=== PATIENT | male | born 1960 | race Caucasian/White ===

== ENCOUNTER → 2019-11-07 | Outpatient (CLI) | payer OTHER, BC ==
[~2019-11-07] MED LIST: ASA81BEC PO; BENADRYL ALLERG25 MG PO; BENICAR40 MG PO; CALCIUM ACETAT667 MG PO; DERMACINRX5000 UNIT PO; FERRIC SUBSULFATE PO; HYDRALAZINE HC100 MG PO; ISOSORBIDE DINI40 M1 PO; LIVALO2 MG PO; NORVASC 2.5 MG2.5 M1; PLAVIX 75 MG TA75 MG PO; TRAZODONE 150150 M1 PO
== END ==
LOC: SJCVCIMAG 12:22
PROVIDERS: ATTEND Internal Medicine Cardiovascular Disease
DX: R94.31 Abnormal electrocardiogram [ECG] [EKG] (principal); I44.7 Left bundle-branch block, unspecified; I08.8 Other rheumatic multiple valve diseases; I48.92 Unspecified atrial flutter; I13.11 Hypertensive heart and chronic kidney disease without heart failure, with stage 5 chronic kidney disease, or end stage renal disease; N18.6 End stage renal disease; I42.9 Cardiomyopathy, unspecified; I49.3 Ventricular premature depolarization; S81.801A Unspecified open wound, right lower leg, initial encounter; F17.200 Nicotine dependence, unspecified, uncomplicated; Z99.2 Dependence on renal dialysis; Z79.899 Other long term (current) drug therapy; Z86.79 Personal history of other diseases of the circulatory system; Z86.73 Personal history of transient ischemic attack (TIA), and cerebral infarction without residual deficits

== ENCOUNTER → 2019-11-08 | Outpatient (CLI) | payer OTHER, BC | LOC: SJCVCIMAG 08:24 | DX: I65.23 Occlusion and stenosis of bilateral carotid arteries (principal) ==

== ENCOUNTER → 2019-11-09 | Outpatient (CLI) | payer OTHER, BC ==
[2019-11-09 07:32] LABS: HEMOGLOBIN 11.1 gm/dL (14.0-18.0); MCH 33.4 pg (26.0-34.0); MCHC 32.7 g/dL (28.0-37.0); MCV 102.3 fL (80.0-100.0); RBC 3.32 mil/uL (4.50-6.00); RDW 17.1 % (10.5-14.5); WBC 6.9 thou/uL (4.0-11.0)
[2019-11-09 07:37] LABS: CALCIUM 8.9 mg/dL (8.5-10.1); POTASSIUM 4.5 mmol/L (3.5-5.1)
[2019-11-09 07:39] VITALS: BP 136/69
--- NOTE | 2019-11-09 08:17 | EKG ---
[facility] [place] [address] ELECTROCARDIOGRAM REPORT Name: MEGGAN PERSAUD Room #: [facility] M.R.#: [id number] Admission: 11/09/19 Attend Phys: Wojciech Mallory MD, Discharge: Date of : 58 Report #: [id number] THIS REPORT FOR: cc: Socrates Wong MD, Stephen L. MD Lundgren,Juan House MD [facility] ~ THIS REPORT FOR: //name// 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
--- NOTE | 2019-11-10 13:01 | CATHLAB ---
[facility] [place] [address] INVASIVE PROCEDURE REPORT Name: MEGGAN PERSAUD Room #: ISRAEL TASNEEM Schilling#: [id number] Admission: 11/09/19 Attend Phys: Wojciech Mallory MD, Discharge: Date of : 58 Report #: [id number] THIS REPORT FOR: cc: Socrates Wong MD, Stephen L. MD Mancuso, Gerald M. MD [facility] ~ APPROVED REPORT Study performed: 11/09/2019 09:55:15 Patient Details Patient Status: Out-Patient Room #: The patient is a 59 year-old male Event Personnel Wojciech Mallory Industrial Cafeteria Manager, Shikha Wang Partnoy, Nancy RTR, CASINO SHIFT MANAGER Monitor, Lobo Jackson RN, Tuan Billings RN e commerce director Performed Art Access - L femoral artery* Bigg Access - L femoral veinRight and Left Heart Cath w/or w/o Coronarie [id number] RLHC Hemostasis w/ Mynx Hemostasis with Manual pressure 48272 Initial Mod Sed Same Phys/QHP Gr5y 733895 81108 Mod Sed Same Phys/QHP Ea 309163 Indication Arrhythmia, Positive stress test Procedure Narrative A SHEATH BRITE-TIP 6F X 11CM ([id number]) sheath was inserted into the LFA. Coronary angiography was performed using coronary diagnostic catheters. The right coronary system was accessed and visualized with a JR4 catheter. The left coronary system was accessed and visualized with a JL6 catheter. The left ventricle was accessed and visualized with a pigtail catheter. Left ventricular/Aortic Valve gradient assessed via catheter pullback. Left ventriculogram was performed in 30 degree projection. Closure device was deployed with a 6 Fr MYNXGRIP 6/7F #[id number]. The patient tolerated the procedure well and there were no complications associated with the procedure. There was no hematoma. Intraoperative Conscious Sedation Sedation start time: 08:20 Case end Time: [facility] [place] [address] INVASIVE PROCEDURE REPORT Name: MEGGAN PERSAUD Room #: [id number] Admission: 11/09/19 Attend Phys: Wojciech Mallory, Discharge: Date of : 58 Report #: [id number] 11:20 Fentanyl 50 mcg Versed 2 mg Conscious sedation is a combined total for peripheral procedure and right and left heart cath. Fluoro time and dose are a combined total for peripheral procedure and right and left heart cath. Visipaque is a combined total for peripheral procedure and right and left heart cath. Omnipaque was used for the coronary injections. 110ml used. Fluoro Time: 19.31 minutes Dose: DAP 16929.20 cGycm2 1522 mGy Contrast Type and Amount: Visipaque 121 ml Hemodynamics The right atrial mean pressure is 20 mmHg. The right ventricular pressure is 42/16 mmHg. The pulmonary artery pressure is 61/23 mmHg with a mean of 32 mmHg. The mean pulmonary capillary wedge pressure is 23 mmHg. The aortic pressure is 158/66 mmHg with a mean of 96 mmHg. The left ventricular pressure is 151/18 mmHg with a mean of mmHg. The left ventricular end diastolic pressure is 29 mmHg. The cardiac output using thermo method is 5.70 L/min. The cardiac index using thermo method is 2.76 L/min/m2. PCI Technique Lesion Percutaneous coronary intervention was performed on the Distal anterior tibial. PCI Technique Lesion 2 Percutaneous Coronary Intervention was performed on the Mid posterior tibial. Conclusion 1. Normal left ventricular size and mild global hypokinesis EF 40-45% range #2 successful right heart catheterization see above hemodynamics. Cardiac output by thermodilution. #3 large dominant ectatic right coronary artery with mild calcification no significant occlusive disease PDA with a 50% ostial lesion. #4 left main short free of disease giving rise to LAD and circumflex #5 LAD moderately calcified with eccentric proximal lesions of 40% diffuse distal disease. #6 circumflex OM large but nondominant moderate distribution. [facility] [address] [place] [address] INVASIVE PROCEDURE REPORT Name: MEGGAN PERSAUD Room #: REG Tonie#: [id number] Admission: 11/09/19 Attend Phys: Wojciech Mallory, Discharge: Date of : 58 Report #: [id number] OM with a 40% eccentric proximal lesion the larger circumflex OM distally is widely patent Recommendations and plan continue aggressive risk factor modification. There is no indication for coronary intervention. Will follow moderate three-vessel disease as stated above. Mild to moderate hypokinesis possibly induced by atrial fibrillation will follow up with potential cardioversion. <ELECTRONICALLY SIGNED> By: Wojciech Mallory MD, [facility] 11/10/19 1259 1259 1259 Wojciech Mallory MD, FAC /INF
== END | disposition home or self-care (01) ==
LOC: CATH 06:36
PROVIDERS: Nuclear Medicine Nuclear Cardiology
DX: I49.9 Cardiac arrhythmia, unspecified (principal); R94.39 Abnormal result of other cardiovascular function study; I25.10 Atherosclerotic heart disease of native coronary artery without angina pectoris; I70.238 Atherosclerosis of native arteries of right leg with ulceration of other part of lower leg; L97.919 Non-pressure chronic ulcer of unspecified part of right lower leg with unspecified severity; I70.1 Atherosclerosis of renal artery; I12.9 Hypertensive chronic kidney disease with stage 1 through stage 4 chronic kidney disease, or unspecified chronic kidney disease; N18.9 Chronic kidney disease, unspecified; I11.0 Hypertensive heart disease with heart failure; I50.9 Heart failure, unspecified; E11.9 Type 2 diabetes mellitus without complications; I48.92 Unspecified atrial flutter; F17.210 Nicotine dependence, cigarettes, uncomplicated; Z98.890 Other specified postprocedural states; Z79.899 Other long term (current) drug therapy; Z79.01 Long term (current) use of anticoagulants; Z11.59 Encounter for screening for other viral diseases

== ENCOUNTER → 2019-12-05 | Outpatient (CLI) | payer OTHER, BC | LOC: SJCVC 12:59 | PROVIDERS: ATTEND Internal Medicine Cardiovascular Disease | DX: I25.10 Atherosclerotic heart disease of native coronary artery without angina pectoris (principal); I48.92 Unspecified atrial flutter; I10 Essential (primary) hypertension; I73.9 Peripheral vascular disease, unspecified; I65.23 Occlusion and stenosis of bilateral carotid arteries; E78.00 Pure hypercholesterolemia, unspecified; I42.9 Cardiomyopathy, unspecified; D68.59 Other primary thrombophilia; F17.200 Nicotine dependence, unspecified, uncomplicated; Z82.49 Family history of ischemic heart disease and other diseases of the circulatory system; Z79.899 Other long term (current) drug therapy ==

== ENCOUNTER → 2019-12-07 | Outpatient (CLI) | payer OTHER, BC | LOC: SJCVC 15:48 | PROVIDERS: ATTEND Internal Medicine Cardiovascular Disease | DX: R94.31 Abnormal electrocardiogram [ECG] [EKG] (principal); I45.2 Bifascicular block; I48.3 Typical atrial flutter; I25.10 Atherosclerotic heart disease of native coronary artery without angina pectoris; I12.9 Hypertensive chronic kidney disease with stage 1 through stage 4 chronic kidney disease, or unspecified chronic kidney disease; N18.6 End stage renal disease ==

== ENCOUNTER → 2020-01-08 | Outpatient (CLI) | payer OTHER, BC ==
[~2020-01-08] MED LIST changes: +ELIQUIS2.5 MG PO; +LISINOPRIL-HCT1 EAC1 PO; +METOPROLOL SUCC50 MG PO; +OLMESARTAN MEDO40 MG PO; +RENAL CAPS SOFTG1 MG PO; +ROSUVASTATIN CA20 MG PO
== END ==
LOC: LAB 14:12
PROVIDERS: ATTEND Internal Medicine Cardiovascular Disease
DX: Z01.812 Encounter for preprocedural laboratory examination (principal); Z11.59 Encounter for screening for other viral diseases

== ENCOUNTER → 2020-01-09 | Outpatient (CLI) | payer OTHER, BC ==
[~2020-01-09] VITALS: Ht 182.9 cm; Wt 87.1 kg
[2020-01-09 07:35] VITALS: BP 156/77
--- NOTE | 2020-01-09 08:44 | TEE ---
[facility] [place] [address] TRANSESOPHAGEAL ECHOCARDIOGRAM Name: MEGGAN PERSAUD Room #: REG TASNEEM Santoyo.#: [id number] Admission: 01/09/20 Attend Phys: Juan Becerra MD, Discharge: Date of : 58 Report #: [id number] THIS REPORT FOR: cc: Socrates Wong MD, Stephen L. MD Lundgren, Craig H. MD [facility] ~ APPROVED REPORT Study performed: 01/09/2020 07:49:35 EXAM: Comprehensive 2D, Doppler, and color-flow Echocardiogram Patient Location: Out-Patient Room #: 9 Status: routine BSA: 2.09 HR: 63 bpm BP: 156/77 mmHg Rhythm: Atrial Flutter Other Information Study Quality: Excellent Indications Atrial Flutter Echo Enhancing Agent Indication: Rule out Shunt Agent(s) / Amount(s) Used: Agitated Saline 7 cc Procedure After obtaining informed consent, patient underwent transesophageal echo in the [employer]. Type of Sedation : Conscious Sedation Sedation was achieved intravenously with: Versed (5 mg) Fentanyl (100 mcg) Transesophageal probe was inserted and advanced into esophagus without difficulty by Juan Becerra MD. Echo enhancement indication: R/O Septal defect. Echo enhancement agent administered: Agitated Saline The ELIE was performed without complications. Throughout the procedure, the blood pressure, pulse oximetry, cardiac rhythm, and rate were monitored. The patient tolerated the procedure without adverse effects. Recovery [facility] [email or web address] [place] [address] TRANSESOPHAGEAL ECHOCARDIOGRAM Name: MEGGAN PERSAUD Room #: REG CL [facility].#: [id number] Admission: 01/09/20 Attend Phys: Juan Becerra, Discharge: Date of : 58 Report #: [id number] from conscious sedation was uneventful and vital signs were stable. Left Ventricle The left ventricle is normal size. There is global hypokinesis of the left ventricle. There is normal left ventricular wall thickness. Left ventricular systolic function is moderately decreased. LVEF is 40%. Right Ventricle The right ventricle is normal size. The right ventricular systolic function is normal. Atria Left atrium is severely No thrombus is visualized in the left atrium or appendage.dilated. No shunting by contrast bubble injection Right atrium is severely dilated. Aortic Valve The aortic valve is trileaflet, mildly sclerotic. No aortic regurgitation is present. There is no aortic valvular stenosis. Mitral Valve Mild mitral annular calcification Mild mitral regurgitation. No evidence of mitral valve stenosis. Tricuspid Valve The tricuspid valve is normal in structure. Trace to mild tricuspid regurgitation. Pulmonic Valve The pulmonary valve is normal in structure. There is no pulmonic valvular regurgitation. Great Vessels Aortic root is borderline dilated (3.9 cm). IVC is normal in size and collapses >50% with inspiration. Pericardium There is no pericardial effusion. <Conclusion> Left ventricular systolic function is moderately decreased. LVEF is 40%. Both atria are severely [facility] [address] [place] [address] TRANSESOPHAGEAL ECHOCARDIOGRAM Name: MEGGAN PERSAUD Room #: REG CL [facility].#: [id number] Admission: 01/09/20 Attend Phys: Juan Becerra, Discharge: Date of : 58 Report #: [id number] No thrombus is visualized in the left atrium or appendage.dilated. No shunting by contrast bubble injection The aortic valve is trileaflet, mildly sclerotic. No aortic regurgitation or stenosis. Mild mitral annular calcification Mild mitral regurgitation. Aortic root is borderline dilated (3.9 cm). There is no pericardial effusion. <ELECTRONICALLY SIGNED> By: Juan Becerra MD, [facility] 01/09/2043 2 Juan Becerra MD, [facility] /INF
== END | disposition home or self-care (01) ==
LOC: CATH 06:37
PROVIDERS: ATTEND Internal Medicine
DX: I48.92 Unspecified atrial flutter (principal); I08.1 Rheumatic disorders of both mitral and tricuspid valves; I13.2 Hypertensive heart and chronic kidney disease with heart failure and with stage 5 chronic kidney disease, or end stage renal disease; E11.22 Type 2 diabetes mellitus with diabetic chronic kidney disease; N18.6 End stage renal disease; I50.9 Heart failure, unspecified; I25.10 Atherosclerotic heart disease of native coronary artery without angina pectoris; F17.210 Nicotine dependence, cigarettes, uncomplicated; I42.9 Cardiomyopathy, unspecified; Z98.890 Other specified postprocedural states; Z79.899 Other long term (current) drug therapy; Z79.01 Long term (current) use of anticoagulants

== ENCOUNTER 2020-01-11 06:32 | Observation (INO) | payer OTHER, BC ==
[~2020-01-11] VITALS: Ht 182.9 cm; Wt 87.1 kg
--- NOTE | ~2020-01-11 | HC ---
[facility] [place] [address] CONSULTATION Name: MEGGAN PERSAUD Room #: 201-P [facility]..#: [id number] Admission: 01/11/20 Attend Phys: Loc Quezada MD Discharge: Date of : 58 Report #: [id number] THIS REPORT FOR: cc: Socrates Wong MD,Socrates Jhaveri-Varun,Werner Dietz MD ~ CC: Loc Wong REASON FOR CONSULTATION: End-stage renal disease. REASON FOR PRESENTATION: Post-atrial flutter ablation. HISTORY OF PRESENT ILLNESS: This is a 59-year-old with end-stage renal disease due to hypertension. He is maintained on hemodialysis every Wednesday, Wednesday and Wednesday. He presented yesterday for an atrial flutter ablation procedure. He is known to have heart block and will be going through a pacemaker insertion today. He dialyzes with [facility]. I was asked to evaluate the patient regarding his dialysis need. He has no specific complaints related to his dialysis. He is utilizing his right-sided AV fistula for dialysis for the last 4 years. Known to have peripheral vascular disease and most recently had a cardiac catheterization along with peripheral vascular disease, angiogram. MEDICATIONS: 1. Crestor. 2. Amlodipine. 3. Olmesartan. ALLERGIES: SHELLFISH. FAMILY HISTORY: Hypertension. PAST MEDICAL AND SURGICAL HISTORY: 1. End-stage renal disease. 2. Atrial flutter. 3. Cardiomyopathy. 4. Right-sided AV fistula. REVIEW OF SYSTEMS: GENERAL: No fever or chills. CARDIOVASCULAR: No chest pain or palpitation. PULMONARY: No cough or hemoptysis. GASTROINTESTINAL: No nausea or vomiting. GENITOURINARY: No frequency, no urgency. MUSCULOSKELETAL: No morning stiffness, no back pain. SKIN: No rash or ulcerations. [facility] [address] [place] [address] CONSULTATION Name: MEGGAN PERSAUD Room #: 201-P [facility].#: [id number] Admission: 01/11/20 Attend Phys: Loc Quezada MD Discharge: Date of : 58 Report #: [id number] PHYSICAL EXAMINATION: VITAL SIGNS: Temperature 36.7, pulse rate is 60, blood pressure is 170/90. Pulse ox is 94. HEAD AND NECK: No jugular venous distention, no bruit, no thyromegaly. CHEST: Clear to auscultation bilaterally. CARDIOVASCULAR: Regular with no rub detected. ABDOMEN: Soft, nontender. EXTREMITIES: Lower extremities, no edema. Upper extremities, right-sided AV fistula. LABORATORY VALUES: White blood cell count is 7.7, hemoglobin is 10.6, platelet is 105. Chemistry from today revealed a sodium of 140, potassium 4.3, BUN of 72, creatinine of 7.6. ASSESSMENT AND PLAN: 1. End-stage renal disease. 2. Status post atrial flutter ablation procedure. 3. Heart block, going for a pacemaker insertion today. 4. Arrangements were made for the patient to have dialysis today. 5. Cardiology is following him regarding his ongoing rhythm issues. 6. Resume his blood pressure medications. 7. We will continue to follow during his hospital stay. By: 0737 0806 Werner Green MD /nt
[~2020-01-11 06:32] MED LIST changes: -ELIQUIS2.5 MG PO; -LISINOPRIL-HCT1 EAC1 PO; -METOPROLOL SUCC50 MG PO; -OLMESARTAN MEDO40 MG PO; -RENAL CAPS SOFTG1 MG PO; -ROSUVASTATIN CA20 MG PO
[2020-01-11 07:26] VITALS: BP 154/77
[2020-01-11 07:44] LABS: BASOPHILS 0.3 % (0.0-2.0); EOSINOPHILS 1.9 % (0.0-3.0); HEMATOCRIT 32.8 % (42.0-52.0); HEMOGLOBIN 10.8 gm/dL (14.0-18.0); LYMPHOCYTES 19.7 % (24.0-44.0); MCH 34.7 pg (26.0-34.0); MCHC 32.8 g/dL (28.0-37.0); MCV 105.8 fL (80.0-100.0); MONOCYTES 10.4 % (1.0-8.0); PLATELET COUNT 121 thou/uL (150-400); POLYS 67.7 % (36.0-66.0); RDW 17.7 % (10.5-14.5)
[2020-01-11 07:54] LABS: CALCIUM 8.5 mg/dL (8.5-10.1); CREATININE 6.5 mg/dL (0.7-1.3); POTASSIUM 3.7 mmol/L (3.5-5.1)
[2020-01-11] MEDS ORDERED: ROSUVASTATIN CA20 MG PO (07:54)
[2020-01-11] MEDS ORDERED: OLMESARTAN MEDO40 MG PO (07:54)
[2020-01-11] MEDS ORDERED: RENAL CAPS SOFTG1 MG PO (07:55)
[2020-01-11] MEDS ORDERED: LISINOPRIL-HCT1 EAC1 PO (07:56)
[2020-01-11 07:59] LABS: ALBUMIN 3.2 g/dL (3.4-5.0); TOTAL BILIRUBIN 0.8 mg/dL (0.2-1.0); TOTAL PROTEIN 7.5 g/dL (6.4-8.2)
[2020-01-11 08:04] LABS: APTT 26.8 Seconds (24.5-32.8); INR 1.1; PROTIME 11.7 Seconds (9.3-11.4)
--- NOTE | 2020-01-11 14:33 | NUR ---
PT ARRIVED TO UNIT AT APPROX 1220 BY PACU STAFF. S/O WITH HERE. PT ALERT AND ORIENTED. SEEMS FRUSTRATED, FLAT. STATES UPSET ABOUT NEEDING PACEMAKER TOMORROW. DR HIGGINBOTHAM IN ROOM TALKING WITH PT REGARDING PROCEDURE TOMORROW. PT STATES ANXIOUS, WANTING SOMETHING FOR ANXIETY. L AND R GROIN SITE DRSVASU CDI, NO HEMATOMA. POST EP LAB VS INITIATED. VSS. ADMISSION COMPLETE. S/O TOOK PT MEDS HOME. TELE STRIP PRINTED AND DOCUMENTED. EDUCATED PT ON IMPORTANCE OF BEDREST, COMMUNICATES UNDERSTANDING. O2 SATS WNL ON 3L O2. DENIES NEEDS AT THIS TIME. WILL CONT TO MONITOR.
[2020-01-11 16:00] VITALS: BP 153/82
--- NOTE | 2020-01-11 18:43 | NUR ---
PT CONTINUES TO BE ALERT AND ORIENTED. VSS. DENIES PAIN. O2 SATS WNL ON 2L. TITRATED DOWN FROM 3. PT UP AD MARTIN TOLERATING WELL. GROIN SITES REMAIN CDI. NO HEMATOMA. PT TO HAVE DIALYSIS TOMORROW. PT LEFT HOME TRAZADONE PILLS. INFORMED PT THAT IS NOT ALLOWED-MEDS TAKEN TO PHARMACY, INSTRUCTED PT TO SHOWCASE MAKER BEFORE DC. DENYING CONCERNS. WILL CONT TO MONITOR. WILL PASS ON REPORT TO JENNIFER WEST.
[2020-01-11 20:05] VITALS: BP 146/61
[2020-01-12] VITALS (7 sets, daily range): BP systolic 148–173; BP diastolic 76–118
--- NOTE | 2020-01-12 03:24 | NUR ---
PT IS ALERT AND ORIENTED X4. LUNGS ARE CLEAR ON 3 LITERS NASAL CANULA. COMPLETE HEART BLOCK SHOULD GO FOR A PACEMAKER PLACEMENT TODAY. DENIES PAIN IS ANXIOUS WITH ASSESSMENT. MEDS GIVEN TO LESSEN ANXIETY. ESRD OLIGURIA. RIGHT ARM FISTUAL BRUIT AND THRILL PRSENT. PLAN IS TO GET DIALYSIS IN AM. WILL CONTINUE TO ASSESS AND MONITOR PER NURSING.
[2020-01-12 05:39] LABS: EOSINOPHILS 1.7 % (0.0-3.0); HEMATOCRIT 32.7 % (42.0-52.0); HEMOGLOBIN 10.6 gm/dL (14.0-18.0); LYMPHOCYTES 23.9 % (24.0-44.0); MCH 34.4 pg (26.0-34.0); MCHC 32.4 g/dL (28.0-37.0); MCV 106.1 fL (80.0-100.0); MONOCYTES 8.8 % (1.0-8.0); PLATELET COUNT 105 thou/uL (150-400); POLYS 64.6 % (36.0-66.0); RBC 3.08 mil/uL (4.50-6.00); RDW 18.2 % (10.5-14.5); WBC 7.7 thou/uL (4.0-11.0)
[2020-01-12 05:48] LABS: CALCIUM 7.9 mg/dL (8.5-10.1); POTASSIUM 4.3 mmol/L (3.5-5.1)
[2020-01-12 06:22] LABS: CREATININE 7.6 mg/dL (0.7-1.3)
[2020-01-12] MEDS ORDERED: METOPROLOL SUCC50 MG PO (16:21)
--- NOTE | 2020-01-12 18:16 | NUR ---
ASSUMED CARE AT SHIFT CHANGE. PT ALERT 4, FROM HOME. DIALYSIS THIS MORNING WITH 3L TAKEN OFF. PACEMAKER PLACED THIS AFTERNOON. POST CARDIAC PROCEDURE VITALS IN PLACE. HOB ELEVATED PER ORDERS. LEFT IMMOPBILIZER IN PLACE. TREATED ELEVATED BP WITH SCHEDULED MEDS. DIET RESUMED. BEDREST TONIGHT. CONTINUE TO MONITOR. CALL LIGHT AND PERSONAL ITEMS IN REACH.
[2020-01-13] VITALS: BP 172/106
[2020-01-13 04:00] VITALS: BP 169/84
[2020-01-13 04:28] VITALS: BP 169/84
--- NOTE | 2020-01-13 04:48 | NUR ---
ASSUMED PT CARE AT AROUND 1930, PT IS AWAKE, ALERT AND ORIENTEDX4, MAKES NEEDS KNOWN, ASSESSMENTS CHARTED, BP ELEVATED, DR NOTIFIED ORDERS RECEIVED AND ADMINISTERED PER AUG, VPACED ON THE MONITOR, PACEMAKER INCISION SITE TO THE LEFT IS CDI, RESTING IN BED, NO DISTRESS NOTED AT THIS TIME
[2020-01-13] MEDS ORDERED: ELIQUIS2.5 MG PO (07:56)
[2020-01-13 08:00] VITALS: BP 151/91
--- NOTE | 2020-01-13 11:30 | NUR ---
ASSUMED CARE AT CHANGE OF SHIFT. ALERT X4, DENIES CHEST PAIN, DENIES SOB, PACEMAKER SITE INTACT, INTEROGATION COMPLETED. CHEST XRAY COMPLETED. CARDIOLOGY ROUNDED AND EDUCATED PT ON POST PROCEDURE EDUCATION. REVIEWED DC PAPERS, REMOVE IV, AND TELE, EDUCATED TO FOLLOW UP WITH CARDIOLOGY. DC HOME WIHT SELF CARE.
[2020-01-13 11:38] VITALS: BP 151/91
== END 2020-01-13 12:55 | disposition home or self-care (01) ==
LOC: CATH 06:32 → 2N 12:24 → CATH 13:41 → EDSTATUS 15:00 → CATH 15:00 → 2N 01-13 12:55
PROVIDERS: ADMIT Internal Medicine Cardiovascular Disease; ATTEND Internal Medicine Cardiovascular Disease
DX: I44.2 Atrioventricular block, complete (principal); I48.3 Typical atrial flutter; I49.3 Ventricular premature depolarization; I42.8 Other cardiomyopathies; I25.10 Atherosclerotic heart disease of native coronary artery without angina pectoris; E78.5 Hyperlipidemia, unspecified; I12.0 Hypertensive chronic kidney disease with stage 5 chronic kidney disease or end stage renal disease; N18.6 End stage renal disease; E11.22 Type 2 diabetes mellitus with diabetic chronic kidney disease; F17.200 Nicotine dependence, unspecified, uncomplicated; Z86.73 Personal history of transient ischemic attack (TIA), and cerebral infarction without residual deficits; Z79.01 Long term (current) use of anticoagulants; Z99.2 Dependence on renal dialysis
CPT/HCPCS: 32100; 62110; 62900; 70005

== ENCOUNTER → 2020-01-18 | Outpatient (CLI) | payer OTHER, BC ==
[~2020-01-18] MED LIST changes: +ELIQUIS2.5 MG PO; +LISINOPRIL-HCT1 EAC1 PO; +METOPROLOL SUCC50 MG PO; +OLMESARTAN MEDO40 MG PO; +RENAL CAPS SOFTG1 MG PO; +ROSUVASTATIN CA20 MG PO
== END ==
LOC: SJCVC 15:19
PROVIDERS: ATTEND Internal Medicine Cardiovascular Disease
DX: Z45.018 Encounter for adjustment and management of other part of cardiac pacemaker (principal); I48.3 Typical atrial flutter; I42.8 Other cardiomyopathies; I44.2 Atrioventricular block, complete; F17.200 Nicotine dependence, unspecified, uncomplicated; Z79.899 Other long term (current) drug therapy

== ENCOUNTER → 2020-02-13 | Outpatient (CLI) | payer OTHER, BC | LOC: SJCVCIMAG 08:16 | PROVIDERS: ATTEND Nuclear Medicine Nuclear Cardiology | DX: I73.9 Peripheral vascular disease, unspecified (principal); I48.92 Unspecified atrial flutter; I25.10 Atherosclerotic heart disease of native coronary artery without angina pectoris; I12.0 Hypertensive chronic kidney disease with stage 5 chronic kidney disease or end stage renal disease; N18.6 End stage renal disease; E78.00 Pure hypercholesterolemia, unspecified; F17.200 Nicotine dependence, unspecified, uncomplicated; Z99.2 Dependence on renal dialysis; Z82.49 Family history of ischemic heart disease and other diseases of the circulatory system ==

== ENCOUNTER → 2020-04-11 | Outpatient (CLI) | payer OTHER, BC | LOC: SJCVC 13:07 | PROVIDERS: ATTEND Internal Medicine Cardiovascular Disease | DX: Z45.018 Encounter for adjustment and management of other part of cardiac pacemaker (principal); R94.31 Abnormal electrocardiogram [ECG] [EKG]; I45.10 Unspecified right bundle-branch block; I42.8 Other cardiomyopathies; I48.3 Typical atrial flutter; I44.2 Atrioventricular block, complete; I48.92 Unspecified atrial flutter; F17.200 Nicotine dependence, unspecified, uncomplicated; Z79.899 Other long term (current) drug therapy ==

== ENCOUNTER → 2020-07-09 | Outpatient (CLI) | payer OTHER, BC | LOC: SJCVC 15:58 | PROVIDERS: ATTEND Internal Medicine Cardiovascular Disease | DX: I45.4 Nonspecific intraventricular block (principal); R94.31 Abnormal electrocardiogram [ECG] [EKG]; I42.8 Other cardiomyopathies; I48.3 Typical atrial flutter; I49.3 Ventricular premature depolarization; I13.11 Hypertensive heart and chronic kidney disease without heart failure, with stage 5 chronic kidney disease, or end stage renal disease; E11.22 Type 2 diabetes mellitus with diabetic chronic kidney disease; N18.6 End stage renal disease; F17.200 Nicotine dependence, unspecified, uncomplicated; Z86.73 Personal history of transient ischemic attack (TIA), and cerebral infarction without residual deficits; Z79.899 Other long term (current) drug therapy; Z95.0 Presence of cardiac pacemaker ==

== ENCOUNTER 2020-12-26 19:36 | Inpatient (IN) | payer OTHER, BC ==
[~2020-12-26] VITALS: Ht 180.3 cm; Wt 91.6 kg
--- NOTE | ~2020-12-26 | P ---
[facility] [place] [address] PROCEDURE REPORT Name: MEGGAN PERSAUD Room #: 457-P ADM IN M.R.#: [id number] Admission: 12/26/20 Attend Phys: Koko Santana MD Discharge: Date of : 58 Report #: [id number] THIS REPORT FOR: cc: Beltran Knight,Edgar Toney MD ~ cc: Koko Santana MD, Wilfrido Hoffman MD, Werner Green MD, ____ DATE OF SERVICE: 12/28/2020 PROCEDURE PERFORMED: Upper endoscopy. HISTORY OF PRESENT ILLNESS: The patient is a 60-year-old male who was admitted through the Emergency Room yesterday with anemia. He is on hemodialysis for renal failure, he was noted to have a hemoglobin of 5.4, escorted to the Emergency Room. Admit hemoglobin was 6.0. He received 2 units of packed cells, hemoglobin went up to 6.8. He underwent another unit of packed cells for a total of 3, hemoglobin at this time is 7.9. He apparently report some black stools recently. The patient is on Epogen. He has had a bone marrow biopsy done in the past. He has a history of AFib. He is on Eliquis. The patient was started on Auryxia, apparently when black stool started; they decreased the dose recently. His last colonoscopy was approximately 6 years ago. No previous history of upper endoscopy. Stools were Hemoccult positive here. DESCRIPTION OF PROCEDURE: The risks and benefits of the procedure were explained to the patient, those risks including but not limited to bleeding, perforation and the risk of sedation. He understood these risks and gave informed consent. Sedation was given using propofol per anesthesia. Next, using a standard Olympus upper endoscope, the scope was placed in the patient's mouth and advanced under direct vision through the esophagus, stomach and into the second portion of the duodenum. The larynx was normal in appearance. The upper and mid esophagus was normal. A possible short segment of Lilly's was noted. I did not proceed with biopsies as the patient was recently on Eliquis. No evidence of esophagitis. Overall, the gastric mucosa was normal. In the fundus and body, there was a mild gastritis with small erosions noted in the gastric antrum. No evidence of bleeding. Again, no biopsies today due to recent Eliquis. The pylorus was normal and patent. The duodenal bulb, first and second portion showed melanosis type changes, but otherwise normal. There was no evidence of blood throughout the exam today. The scope was then withdrawn and the procedure terminated. The patient tolerated the procedure well. IMPRESSION: 1. 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 2. Gastritis with small erosions. No evidence of bleeding. 3. Melanosis changes of the duodenum. [address] [address] PROCEDURE REPORT Name: MEGGAN PERSAUD Room #: 457-P [facility] IN M.R.#: [id number] Admission: 12/26/20 Attend Phys: Koko Santana MD Discharge: Date of : 58 Report #: [id number] 4. Otherwise, normal upper endoscopy. Again, no evidence of bleeding or stigmata of recent bleeding on upper endoscopy today. RECOMMENDATIONS: 1. Continue PPI therapy. 2. Continue to monitor hemoglobin closely. 3. We will discuss proceeding with colonoscopy possibly tomorrow with the patient. Thank you for allowing me to participate in his care. By: 1030 2049 Edgar Carter MD /nt
--- NOTE | ~2020-12-26 | P ---
[facility] [place] [address] PROCEDURE REPORT Name: MEGGAN PERSAUD Room #: 457-P [facility] IN M.R.#: [id number] Admission: 12/26/20 Attend Phys: Koko Santana MD Discharge: 12/29/20 Date of : 58 Report #: [id number] THIS REPORT FOR: cc: Beltran Knight,Edgar Toney MD ~ cc: Koko Santana MD, Beltran Knight, DATE OF SERVICE: 12/29/2020 PROCEDURE PERFORMED: Colonoscopy with polypectomies and tattoo. HISTORY OF PRESENT ILLNESS: The patient is a 60-year-old male with a history of end-stage renal disease, on hemodialysis. He has a history of chronic anemia. On dialysis, he was noted to have a hemoglobin of 5.4. He went to the emergency room and was admitted. Hemoglobin here was 6.0. He had a total of 3 units transfused. His hemoglobin at this time is 7.5, it was 7.9 yesterday. He also has a Hemoccult positive stool. He was complaining of some dark stools recently. Therefore, an upper endoscopy was performed by myself yesterday. This showed a possible short segment of Lilly's, mild gastritis with small erosions, but no evidence of bleeding throughout the exam. The patient had recently been on Eliquis and biopsies were not obtained. He has now been off Eliquis for two days. Plan is for colonoscopy today. He is unsure when his last colonoscopy was performed. No family history of colon cancer. DESCRIPTION OF PROCEDURE: The risks and benefits of the procedure were explained to the patient, those risks including but not limited to bleeding, perforation and the risk of sedation. He understood these risks and gave informed consent. Sedation was given using propofol per anesthesia. Next, a digital rectal exam was initially performed, which was normal. Next, using a standard Olympus colonoscope, the scope was placed in the patient's anus and advanced under direct vision to the cecum. The overall prep was good. In the cecum, there was a small area of just a few centimeters, it appears to be a mild colitis. Biopsies were obtained, otherwise, normal. The ileocecal valve was normal. In the proximal ascending colon, there was colitis with small ulcerations. Several biopsies were obtained to rule out the possibility of a recent ischemic colitis. There was no active bleeding. Also, in the ascending colon were 2 polyps, 4-6 mm in size, both removed by snare cautery. In the transverse colon, there was a total of 6 polyps noted. The smaller ones ranged from 5 mm to 1 cm. However, there was one large one that was approximately 2.5 cm in size. This was located at 60 cm. This was removed. All the polyps were removed by snare cautery. The largest was removed in a piecemeal fashion. Once that was removed, I tattooed the edges of the polypectomy site. There was no bleeding after polypectomies. The descending colon was normal. Multiple diverticula were noted in the sigmoid colon. No evidence of inflammation or recent bleeding. The rectal mucosa was normal. On retroflexion, [facility] [address] [address] PROCEDURE REPORT Name: MEGGAN PERSAUD Room #: 457-P DIS IN M.R.#: [id number] Admission: 12/26/20 Attend Phys: Koko Santana MD Discharge: 12/29/20 Date of : 58 Report #: [id number] nonbleeding internal hemorrhoids also noted. The scope was then withdrawn and the procedure terminated. The patient tolerated the procedure well. IMPRESSION: 1. Colitis in the ascending colon and a small area in the cecum. Suspect this may be secondary to recent ischemic colitis. No evidence of bleeding at this time. Biopsies were obtained. 2. Multiple polyps as described above including a large polyp at 60 cm as described above, all were removed today. 3. Sigmoid diverticulosis. No evidence of bleeding or recent bleeding. 4. Small nonbleeding internal hemorrhoids. RECOMMENDATIONS: 1. Await biopsy results. 2. We will repeat colonoscopy in one year if polyps show no evidence of dysplasia. 3. Would recommend holding his Eliquis for the next 10 days due to multiple polyps being removed today. Thank you for allowing me to participate in his care. By: 0853 [id number] Edgar Carter MD /nt
[2020-12-26 19:36] VITALS: BP 147/83
[2020-12-26 21:17] LABS: BASOPHILS 1.3 % (0.0-2.0); LYMPHOCYTES 9.7 % (24.0-44.0); MCH 32.7 pg (26.0-34.0); MCHC 30.8 g/dL (28.0-37.0); MCV 106.1 fL (80.0-100.0); MONOCYTES 11.7 % (1.0-8.0); PLATELET COUNT 179 thou/uL (150-400); POLYS 75.3 % (36.0-66.0); RBC 1.84 mil/uL (4.50-6.00); RDW 21.2 % (10.5-14.5); WBC 6.6 thou/uL (4.0-11.0)
[2020-12-26 21:21] LABS: HEMATOCRIT 19.5 % (42.0-52.0)
[2020-12-26 21:31] LABS: ANION GAP 10 mmol/L (7-16); BUN 60 mg/dL (7-18); CALCIUM 8.4 mg/dL (8.5-10.1); CHLORIDE 101 mmol/L (98-107); CO2 31 mmol/L (21-32); CREATININE 5.8 mg/dL (0.7-1.3); GLUCOSE 109 mg/dL (74-106); POTASSIUM 3.3 mmol/L (3.5-5.1); SODIUM 142 mmol/L (136-145)
[2020-12-26 21:36] LABS: ALBUMIN 2.9 g/dL (3.4-5.0); SGOT 21 U/L (15-37); SGPT 16 U/L (30-65); TOTAL BILIRUBIN 0.6 mg/dL (0.2-1.0); TOTAL PROTEIN 7.5 g/dL (6.4-8.2); TROPONIN-I <0.06 ng/mL (<0.06)
[2020-12-26 22:01] VITALS: BP 153/76
[2020-12-26 22:09] VITALS: BP 145/86
[2020-12-26] MEDS ORDERED: AMIODARONE HCL400 MG PO (22:29)
[2020-12-27] VITALS (7 sets, daily range): BP systolic 132–148; BP diastolic 72–89
--- NOTE | 2020-12-27 05:02 | NUR ---
ASSESSMENT: PT ARRIVED TO ROOM 457 FROM ED. PT IS ALERT AND ORIENT TIMES FOUR. VSS, AFEBRILE. SR PER MONITOR. PT RECEIVED 2 UNITS OF PRBC, TOLERATED WELL. DENIES CONTINUOUS PAIN, DOES HAVE HX OF BACK PAIN. PT IS ANURIC AND NO BM THIS SHIFT. PT'S HOME MEDS WERE GIVEN TO PHARMACY IN A SECURITY BAG. PT EDUCATED ABOUT USING CALL BUTTON, BED ALARMS, AND TRANSFUSION REACTIONS. SLOW PROGRESS TOWARDS DC GOALS, WILL CONTINUE TO MONITOR.
[2020-12-27 10:00] LABS: HEMATOCRIT 20.8 % (42.0-52.0); HEMOGLOBIN 6.8 gm/dL (14.0-18.0)
[2020-12-27 10:20] LABS: % SATURATION 65 % (20-39); IRON 170 ug/dL (65-175); TIBC 261 ug/dL (250-450)
[2020-12-27 16:53] LABS: HEMATOCRIT 23.7 % (42.0-52.0); HEMOGLOBIN 7.6 gm/dL (14.0-18.0)
--- NOTE | 2020-12-27 17:22 | 2DMMODE ---
[facility] [place] [address] 2 D/M-MODE ECHOCARDIOGRAM Name: MEGGAN PERSAUD Room #: 457-P ADM IN M.R.#: [id number] Admission: 12/26/20 Attend Phys: Koko Santana MD Discharge: Date of : 58 Report #: [id number] THIS REPORT FOR: cc: Beltran Knight,Juan Avila MD [facility] ~ APPROVED REPORT Study performed: 12/27/2020 14:22:37 EXAM: Comprehensive 2D, Doppler, and color-flow Echocardiogram Patient Location: Bedside Room #: [facility] Status: routine BSA: 2.10 HR: 71 bpm BP: 145/86 mmHg Rhythm: Pacemaker Other Information Study Quality: Good Indications Congestive Heart Failure Pacemaker Cardiomyopathy Hypertension/HDD 2D Dimensions RVDd: 50.46 mm IVSd: 16.71 (7-11mm) LVOT Diam: 25.98 (18-24mm) LVDd: 51.56 mm PWd: 16.58 (7-11mm) Ascending Ao: 35.89 (22-36mm) LVDs: 36.75 (25-40mm) Left Atrium: 48.87 (27-40mm) Aortic Root: 38.65 mm IVC: 29.00 mm Volumes Left Atrial Volume (Systole) Single Plane 4CH: 127.46 mL Single Plane 2CH: 131.14 mL LA ESV Index: 66.00 mL/m2 Aortic Valve [facility] [address] [place] [address] 2 D/M-MODE ECHOCARDIOGRAM Name: REBECCAEmmieMEGGAN SHELDON Room #: 457-P ADM IN M.R.#: [id number] Admission: 12/26/20 Attend Phys: Koko Santana, Discharge: Date of : 58 Report #: [id number] AoV Peak Goldy.: 2.14 m/s AO Peak Gr.: 18.28 mmHg LVOT Max P.67 mmHg LVOT Max V: 1.08 m/s MORENA Vmax: 2.68 cm2 Mitral Valve E/A Ratio: 2.5 MV Decel. Time: 236.96 ms MV E Max Goldy.: 1.53 m/s MV A Goldy.: 0.62 m/s MV PHT: 68.72 ms IVRT: 96.89 ms Pulmonary Valve PV Peak Goldy.: 1.09 m/s PV Peak Gr.: 4.77 mmHg Pulmonary Vein P Vein S: 0.42 m/s P Vein A: 0.16 m/s P Vein D: 0.77 m/s P Vein A Dur.: 78.4 msec P Vein S/D Ratio: 0.55 Tricuspid Valve TR Peak Goldy.: 3.03 m/s TR Peak Gr.: 36.77 mmHg PA Pressure: 47.00 mmHg Left Ventricle The left ventricle is normal size. There is global hypokinesis of the left ventricle. Moderate concentric left ventricular hypertrophy. Left ventricular systolic function is moderately decreased. LVEF is 40-45%. Severe diastolic dysfunction Right Ventricle Right ventricle is dilated. The right ventricular systolic function is normal. Pacemaker lead is present in the right ventricle. Atria Left atrium is dilated. Right atrium is dilated. Pacemaker lead is present in the right atrium. Aortic Valve Aortic valve is mildly calcified No aortic regurgitation is present. There is no aortic valvular stenosis. Mitral Valve Moderate mitral annular calcification Mild-moderate mitral [facility] [place] [address] 2 D/M-MODE ECHOCARDIOGRAM Name: MEGGAN PERSAUD Room #: 457-P [facility] IN .R.#: [id number] Admission: 12/26/20 Attend Phys: Koko Santana, Discharge: Date of : 58 Report #: [id number] regurgitation. No evidence of mitral valve stenosis. Tricuspid Valve The tricuspid valve is normal in structure. There is mild tricuspid regurgitation. Estimated 45 mmHg. There is moderate pulmonary hypertension. Pulmonic Valve The pulmonary valve is normal in structure. There is no pulmonic valvular regurgitation. Great Vessels The aortic root is normal in size. IVC is dilated and collapses <50% with inspiration. Pericardium There is no pericardial effusion. <Conclusion> Left ventricular systolic function is moderately decreased. There is global hypokinesis of the left ventricle. LVEF is 40-45%. Severe diastolic dysfunction Both atria are dilated. Pacemaker lead is present in the right atrium. Aortic valve is mildly calcified. No aortic regurgitation or stenosis Moderate mitral annular calcification. Mild-moderate mitral regurgitation. There is mild tricuspid regurgitation. Estimated pulmonary artery pressure of 45 mmHg. There is no pericardial effusion. <ELECTRONICALLY SIGNED> By: Juan Becerra MD, FACC 12/27/201720 20 20 Juan Becerra MD, FACC /INF
--- NOTE | 2020-12-27 19:58 | NUR ---
ASSUMED PT CARE THIS AM. PT IS ALERT & ORIENTED X4. PT HAS IV SITE ON L 20 GAUGE AND R AV FISTULA. PT IS ON TELE WITH AV PACED NOTED. CHANGED DIET FOR DINNER PER PT REQUEST AND DR GABY. ENDORSE NIGHT NURSE TO CHANGE DIET TO NPO AFTER MIDNIGHT. PT DID DIALYSIS TODAY. PT IS ON ROOM AIR. PT HGB WAS 6.8 THIS AM AFTER RECEIVING 2 UNITS OF BLOOD FROM NIGHT NURSE AND INFORMED DRBozena GIVEN 1 UNIT OF BLOOD AND HGB IS NOW ELEVATED AND INFORMED SENT OCCULT BLOOD TO THE LAB TODAY. PT IS ACCUCHECK ACHS. PT ON THE BED, BED ON THE LOWEST POSITION, SIDE RAILS UP, CALL LIGHT WITHIN REACH. WILL CONTINUE TO MONITOR PT. FOLLOW POC.
[2020-12-28 02:07] LABS: HEP B SURFACE Ab(ANTI-HBS Non Reactive (()); HEPATITIS B SURFACE AG Negative (Negative)
--- NOTE | 2020-12-28 06:03 | NUR ---
Pt. rested quietly during the night when checked on during frequent rounds. He offers no c/o pain. Pt. verbalizes that he feels a little more stronger after all that blood that went through him.
[2020-12-28 07:28] VITALS: BP 141/82
[2020-12-28 10:20] LABS: HEMATOCRIT 25.7 % (42.0-52.0); HEMOGLOBIN 7.9 gm/dL (14.0-18.0); MCH 31.8 pg (26.0-34.0); MCHC 30.6 g/dL (28.0-37.0); MCV 103.9 fL (80.0-100.0); RBC 2.47 mil/uL (4.50-6.00); WBC 6.4 thou/uL (4.0-11.0)
[2020-12-28 10:27] LABS: CALCIUM 8.5 mg/dL (8.5-10.1); CREATININE 5.4 mg/dL (0.7-1.3); POTASSIUM 3.8 mmol/L (3.5-5.1)
--- NOTE | 2020-12-28 11:36 | NUR ---
ASSUMED PT CARE THIS AM. PT A&OX4, ABLE TO MAKE NEEDS KNOWN. IV REMAINS PATENT, SALINE LOCKED. PATIENT HAS BEEN NPO FOR EGD THIS DAY. PATIENT REPORTING NO PAIN, NUMBNESS, OF TINGLING. BLOOD SUGAR BEING MONITORED. PATIENT REMAINS ON ROOM AIR. CALL LIGHT WITHIN REACH, INSTRUCTED TO CALL WHEN NEEDED.
[2020-12-28 17:25] VITALS: BP 144/80
--- NOTE | 2020-12-28 19:27 | NUR ---
Took over care at approx 1630 from JENNA Patel. On telemetry; no complains and signs of chest pain, crushing sensation and heaviness. On clear liquids- tolerating well; no nausea, no vomiting and no abdominal pain noted. On nothing per orem post midnight- pt informed and aware. Tolerating bowel prep. On blood sugar monitoring, taken and recorded accordingly. Dialysis pt M-W-F; dialysis fistula at R upper arm. SL at L AC. Falls bundle in place. Night RN informed re: colonoscopy tomorrow; NPO post midnight and to continue remaining bowel prep. To continue monitoring patient.
[2020-12-28 21:28] VITALS: BP 152/94
--- NOTE | 2020-12-29 05:27 | NUR ---
patient has been having seveal bowel movements this shift.patient finished bowel prep. no bleeding noted this shift. patient in bed asleep at this time breathing regular and unlaboured.
[2020-12-29 05:44] LABS: HEMATOCRIT 23.7 % (42.0-52.0); HEMOGLOBIN 7.5 gm/dL (14.0-18.0); MCH 31.6 pg (26.0-34.0); MCHC 31.7 g/dL (28.0-37.0); MCV 99.7 fL (80.0-100.0); RBC 2.38 mil/uL (4.50-6.00); RDW 22.6 % (10.5-14.5); WBC 5.1 thou/uL (4.0-11.0)
[2020-12-29 05:57] LABS: CALCIUM 7.9 mg/dL (8.5-10.1); POTASSIUM 3.7 mmol/L (3.5-5.1)
[2020-12-29 05:58] LABS: CREATININE 6.4 mg/dL (0.7-1.3)
[2020-12-29 07:34] VITALS: BP 170/96
--- NOTE | 2020-12-29 10:28 | NUR ---
PT IS A&O*4, ROOM AIR, GET UP AD LIP. PT GET ENDOSCOPY IN THE MORNING AND NO PAIN COMPLIANT. REPORT TO AND WAIT FOR PT DISCHARGE ORDER. WILL MONITOR PATIENT SAFETY. DIALYSIS FISTULA ON RIGHT UPPER ARM.
[2020-12-29] MEDS ORDERED: ELIQUIS2.5 MG PO (11:13)
[2020-12-29] MEDS ORDERED: PROTONIX40 M2 PO (11:15)
[2020-12-29 11:22] VITALS: BP 170/96
--- NOTE | 2020-12-29 11:46 | NUR ---
DISCHARGE INFORMATION, PRESCRIPTION SHEET GIVEN TO PATIENT. PT SAID UNSERSTAND DISCHARGE EDUCATION. IV REMOVED AND TELE REMOVED. HOME MEDICATION RETURNED. PATIENT NOTIFIED FAMILY TO PICK HIM UP AFTER LUNCH TIME. WILL KEEP MONITOR PT'S SAFETY UNTIL LEAVE.
== END 2020-12-29 16:00 | disposition home or self-care (01) | DRG 377 ==
LOC: ER 19:36 → 4W 21:26 → EROBS 21:26 → 4W 22:02
PROVIDERS: Emergency Medicine; Hospitalist; Nurse Practitioner Family; ADMIT Internal Medicine; ATTEND Internal Medicine
DX: K29.71 Gastritis, unspecified, with bleeding (principal); N18.6 End stage renal disease; D62 Acute posthemorrhagic anemia; I13.2 Hypertensive heart and chronic kidney disease with heart failure and with stage 5 chronic kidney disease, or end stage renal disease; I48.92 Unspecified atrial flutter; I42.8 Other cardiomyopathies; K55.9 Vascular disorder of intestine, unspecified; K57.31 Diverticulosis of large intestine without perforation or abscess with bleeding; K52.9 Noninfective gastroenteritis and colitis, unspecified; E87.6 Hypokalemia; K64.8 Other hemorrhoids; K63.5 Polyp of colon; E78.5 Hyperlipidemia, unspecified; I73.9 Peripheral vascular disease, unspecified; I48.91 Unspecified atrial fibrillation; I25.10 Atherosclerotic heart disease of native coronary artery without angina pectoris; L81.4 Other melanin hyperpigmentation; I50.9 Heart failure, unspecified; Z79.899 Other long term (current) drug therapy; Z91.013 Allergy to seafood; Z87.891 Personal history of nicotine dependence; Z99.2 Dependence on renal dialysis; Z86.73 Personal history of transient ischemic attack (TIA), and cerebral infarction without residual deficits; Z79.01 Long term (current) use of anticoagulants
CPT/HCPCS: 10045; 32100; 62110; 62900; 70005

== ENCOUNTER → 2021-07-17 | Outpatient (CLI) | payer OTHER, BC ==
[~2021-07-17] MED LIST changes: +AMIODARONE HCL400 MG PO; +PROTONIX40 M2 PO
== END ==
LOC: SJCVC 14:13
PROVIDERS: ATTEND Internal Medicine Cardiovascular Disease
DX: I48.92 Unspecified atrial flutter (principal); I42.9 Cardiomyopathy, unspecified; I10 Essential (primary) hypertension; I63.9 Cerebral infarction, unspecified; E11.9 Type 2 diabetes mellitus without complications